=== PATIENT | female | born 1970 | race American Indian/Alaskan Native ===

== ENCOUNTER 2017-10-06 16:41 | Emergency (ER) | payer BC ==
[2017-10-06 17:50] VITALS: BP 159/104
[2017-10-06 18:19] LABS: Basophils % (Auto) 0.8 % (0.0-1.8); Eosinophils % (Auto) 1.1 % (0.0-4.3); Hematocrit 32.2 % (30.3-42.9); Hemoglobin 10.5 gm/dl (10.1-14.3); Mean Corpuscular HGB Conc 33 % (30-34); Mean Corpuscular Hemoglobin 33 pg (28-32); Mean Corpuscular Volume 102 fl (79-97); Platelet Count 310 K/mm3 (140-440); Red Blood Count 3.15 M/mm3 (3.65-5.03); Red Cell Distribution Width 14.9 % (13.2-15.2); White Blood Count 7.9 K/mm3 (4.5-11.0)
[2017-10-06 18:38] LABS: Calcium 9.4 mg/dL (8.4-10.2); Chloride 98.5 mmol/L (98-107); Potassium 3.9 mmol/L (3.6-5.0)
[2017-10-06 20:17] LABS: Bilirubin,Urine NEG (Negative); Blood,Urine LG (Negative); Ketones,Urine TR mg/dL (Negative); Leukocyte Esterase,Urine LG (Negative); Mucus,Urine FEW /HPF; Nitrite,Urine NEG (Negative); Urobilinogen,Urine < 2.0 mg/dL (<2.0)
[2017-10-06 20:18] LABS: RBC,Urine > 182.0 /HPF (0.0-6.0)
== END 2017-10-06 21:01 | disposition left against medical advice (07) ==
LOC: ED 16:41
DX: Z53.21 Procedure and treatment not carried out due to patient leaving prior to being seen by health care provider (principal)
CPT/HCPCS: 36415; 80048; 81001; 84702; 85025; 86850; 86900; 86901